=== PATIENT | female | born 1950 | race Caucasian/White ===

== ENCOUNTER 2018-01-14 15:49 | Emergency (ER) | payer MEDICARE ==
[2018-01-14] MEDS: GABAPENTIN 300 MG CAPSULE. PO ×2 (16:09)
[2018-01-14] MEDS: HYDROcodone/APAP 5/325MG 1 TAB TABLET PO ×2 (16:30)
== END 2018-01-14 17:17 | disposition home or self-care (01) ==
LOC: ER 15:49
DX: M54.31 Sciatica, right side (principal); E11.40 Type 2 diabetes mellitus with diabetic neuropathy, unspecified; Z88.5 Allergy status to narcotic agent
CPT/HCPCS: 99283